=== PATIENT | male | born 1965 | race African-American/Black ===

== ENCOUNTER 2016-05-23 14:49 | Inpatient (IN) | payer OTHER ==
--- NOTE | 2016-05-23 15:12 | ED PDOC ---
HPI: SOB/CHF/COPD Time Seen by Provider: 05/23/16 15:02 Chief Complaint (Nursing): Shortness Of Breath Chief Complaint (Provider): Dyspnea History Per: Patient History/Exam Limitations: no limitations Onset/Duration Of Symptoms: Days (3 weeks) Current Symptoms Are (Timing): Still Present Additional Complaint(s): Dyspnea on exertion. Palpitations off and on and chest pain 1-2 sec occasionally. No numbness, tingles, headaches, dizziness. Has weakness all over. No calf pain. No abd pain. No back pain. Seen by Dr. Chao today and sent to the ER for new onset a-flutter and admit. Past Medical History Reviewed: Nursing Documentation, Vital Signs Vital Signs: Last Vital Signs Temp 97.9 F 05/23/16 14:51 Pulse 86 05/23/16 14:51 Resp 20 05/23/16 14:51 BP 127/74 05/23/16 14:51 Pulse Ox 98 05/23/16 15:22 - Medical History Other PMH: a flutter, high chol - Surgical History Other surgeries: heart valve surg - Family History Family History: States: Unknown Family Hx - Living Arrangements Living Arrangements: With Family - Social History Current smoker - smoking cessation education provided: No Alcohol: None Drugs: Denies - Immunization History Hx Tetanus Toxoid Vaccination: No Hx Influenza Vaccination: No Hx Pneumococcal Vaccination: No - Home Medications Home Medications: Ambulatory Orders Medication Instructions Recorded Atorvastatin [Lipitor] 30 mg PO DAILY 05/23/16 Warfarin [Coumadin] 3 mg PO DAILY 05/23/16 - Allergies Allergies/Adverse Reactions: Allergies Allergy/AdvReac Type Severity Reaction Status Date / Time No Known Allergies Allergy Unverified 04/09/14 10:29 Review of Systems ROS Statement: Except As Marked, All Systems Reviewed And Found Negative Cardiovascular: Positive for: Chest Pain, Palpitations Respiratory: Positive for: Shortness of Breath Neurological: Positive for: Weakness Physical Exam - Reviewed Nursing Documentation Reviewed: Yes Vital Signs Reviewed: Yes - Physical Exam Appears: Positive for: Uncomfortable Head Exam: Positive for: ATRAUMATIC, NORMAL INSPECTION, NORMOCEPHALIC Skin: Positive for: Normal Color, Warm, DRY Eye Exam: Positive for: EOMI, Normal appearance, PERRL ENT: Positive for: Normal ENT Inspection Neck: Positive for: Normal, Painless ROM Cardiovascular/Chest: Positive for: Regular Rate, Rhythm, Chest Non Tender. Negative for: Edema Respiratory: Positive for: CNT, Normal Breath Sounds Gastrointestinal/Abdominal: Positive for: Normal Exam, Bowel Sounds, Soft. Negative for: Tenderness Back: Positive for: Normal Inspection. Negative for: L CVA Tenderness, R CVA Tenderness Extremity: Positive for: Normal ROM. Negative for: Tenderness, Pedal Edema Neurologic/Psych: Positive for: Alert, Oriented - Laboratory Results Result Diagrams: 05/23/16 13:50 05/23/16 13:50 Interpretation Of Abn Labs: 2640 probnp - ECG ECG: Positive for: Interpreted By Me, Viewed By Me Interpretation Of Abn EKG: a flutter O2 Sat by Pulse Oximetry: 98 Pulse Ox Interpretation: Normal - Radiology X-Ray: Interpreted by Me, Viewed By Me X-Ray Interpretation: No Acute Disease - Progress ED Course And Treament: 1517: Stable. AAOx3. No pain at this time. HR controlled. Spoke with Dr. Arrieta. Will admit tele. Will give further orders when pt. reaches floor. Spoke with Dr. Chao. Well aware of pt. No anticoagulants to add at this time as pt. is on coumadin. Wants echo. Will consult. 1739: Stable. AAOx3. Will give lasix for elevated probnp. No asa as pt. on coumadin and elevated INR. Disposition - Clinical Impression Clinical Impression: Atrial flutter, CHF exacerbation - Patient ED Disposition Is Patient to be Admitted: Yes Counseled Patient/Family Regarding: Studies Performed, Diagnosis - Disposition Disposition Time: 17:43 Condition: FAIR - Pt Status Changed To: Hospital Disposition Of: Inpatient - Admit Certification Admit to Inpatient:: After my assessment, the patient will require hospitalization for at least two midnights. This is because of the severity of symptoms shown, intensity of services needed, and/or the medical risk in this patient being treated as an outpatient. - POA Present On Arrival: None
[2016-05-23] MEDS ORDERED: Sodium Chloride 0.9% 500 ML IV STA (15:16)
[2016-05-23 15:38] LABS: BASO # 0.1 K/uL (0.0-0.2); BASO % 0.9 % (0.0-2.0); EOS # 0.1 K/uL (0.0-0.7); EOS % 1.4 % (0.0-4.0); HEMATOCRIT 40.5 % (35.0-51.0); LYMPH # 1.3 K/uL (1.0-4.3); LYMPH % 18.4 % (20.0-40.0); MEAN CELL VOLUME 97.1 fl (80.0-94.0); MEAN CORPUSCULAR HEMOGLOBIN 32.7 pg (27.0-31.0); MEAN CORPUSCULAR HGB CONC 33.7 g/dL (33.0-37.0); MEAN PLATELET VOLUME 7.6 fl (7.2-11.7); MONO # 0.5 K/uL (0.0-0.8); MONO % 6.5 % (0.0-10.0); NEUT # 5.2 K/uL (1.8-7.0); NEUT % 72.8 % (50.0-75.0); RED CELL DISTRIBUTION WIDTH 13.6 % (11.5-14.5); WHITE BLOOD COUNT 7.2 K/uL (4.8-10.8)
[2016-05-23 15:49] LABS: ALB/GLOB RATIO 1.2 (1.0-2.1); ALKALINE PHOSPHATASE 72 U/L (38-126); ALT/SGPT 92 U/L (21-72); AST/SGOT 99 U/L (17-59); BILIRUBIN,TOTAL 0.9 mg/dl (0.2-1.3); BLOOD UREA NITROGEN 12 mg/dl (9-20); CALCIUM 8.8 mg/dL (8.4-10.2); CARBON DIOXIDE 26 mmol/L (22-30); CHLORIDE 103 mmol/L (98-107); GFR AFRICAN-AMERICAN > 60; GLUCOSE,RANDOM 119 mg/dL (75-110); POTASSIUM 3.9 MMOL/L (3.6-5.0); SODIUM 138 mmol/l (132-148); TOTAL PROTEIN 7.7 G/DL (6.3-8.2)
[2016-05-23 16:13] LABS: PARTIAL THROMBOPLASTIN TIME 47.2 SECONDS (23.3-32.5)
--- NOTE | 2016-05-23 16:39 | CP.PCM.HP ---
<Rufina Ng - Last Filed: 05/23/16 16:39> History of Present Illness - History of Present Illness History of Present Illness: Pt is a 50 y/o male with history of valve placement sent by his holter scanning technician for new onset flutter. pt initially presented to his holter scanning technician office with complaints of dyspnea on exertion, palpitations off and on and chest pain 1-2 sec occasionally. No numbness, tingles, headaches, dizziness. Has weakness all over. No calf pain. No abd pain. No back pain. Pt seen and examined in ed , laying in bed with stephenen, states he feel weak but is not having chest pain now. denies any nausea, vomiting or loss of appetite Present on Admission - Present on Admission Any Indicators Present on Admission: No Review of Systems - Review of Systems All systems: reviewed and no additional remarkable complaints except Review of Systems: Per HPI Past Patient History - Past Social History Smoking Status: Never Smoked - CARDIAC Hx Hypercholesterolemia: Yes Hx Mitral Valve Prolapse: Yes - PSYCHIATRIC Hx Substance Use: No - SURGICAL HISTORY Other/Comment: mitral valved repair 1992 [facility] - ANESTHESIA Hx Anesthesia: Yes Hx Anesthesia Reactions: No Meds Allergies/Adverse Reactions: Allergies Allergy/AdvReac Type Severity Reaction Status Date / Time No Known Allergies Allergy Unverified 04/09/14 10:29 Physical Exam - Constitutional Appears: Non-toxic, No Acute Distress - Head Exam Head Exam: NORMOCEPHALIC - Eye Exam Eye Exam: Normal appearance, PERRL Pupil Exam: NORMAL ACCOMODATION - ENT Exam ENT Exam: Mucous Membranes Moist - Respiratory Exam Respiratory Exam: Clear to Auscultation Bilateral, NORMAL BREATHING PATTERN. absent: Rhonchi, Wheezes - Cardiovascular Exam Cardiovascular Exam: REGULAR RHYTHM, +S1, +S2 - GI/Abdominal Exam GI & Abdominal Exam: Normal Bowel Sounds, Soft. absent: Tenderness - Extremities Exam Extremities exam: Positive for: normal inspection. Negative for: calf tenderness, joint swelling, pedal edema - Neurological Exam Neurological exam: Alert, CN II-XII Intact, Oriented x3 - Skin Skin Exam: Normal Color Results - Vital Signs Recent Vital Signs: Last Vital Signs Temp 97.9 F 05/23/16 14:51 Pulse 86 05/23/16 14:51 Resp 20 05/23/16 14:51 BP 127/74 05/23/16 14:51 Pulse Ox 98 05/23/16 15:22 - Labs Result Diagrams: 05/23/16 13:50 05/23/16 13:50 Labs: Laboratory Results - last 24 hr 05/23/16 13:50 WBC 7.2 RBC 4.18 L Hgb 13.7 Hct 40.5 MCV 97.1 H MCH 32.7 H MCHC 33.7 RDW 13.6 Plt Count 218 MPV 7.6 Neut % (Auto) 72.8 Lymph % (Auto) 18.4 L [place] % (Auto) 6.5 Eos % (Auto) 1.4 Baso % (Auto) 0.9 Neut # 5.2 Lymph # 1.3 [place] # 0.5 Eos # 0.1 Baso # 0.1 PT 50.9 H* INR 4.89 H APTT 47.2 H Sodium 138 Potassium 3.9 Chloride 103 Carbon Dioxide 26 Anion Gap 12 BUN 12 Creatinine 0.9 Est GFR ( Amer) > 60 Est GFR (Non-Af Amer) > 60 Random Glucose 119 H Calcium 8.8 Total Bilirubin 0.9 AST 99 H ALT 92 H Alkaline Phosphatase 72 Troponin I 0.0340 NT-Pro-B Natriuret Pep 2640 H Total Protein 7.7 Albumin 4.2 Globulin 3.5 Albumin/Globulin Ratio 1.2 Assessment & Plan - Assessment and Plan (Free Text) Assessment: 50 y/o male with history of hyperlipidemia and valve replacement surgery being admitted for new onset A-flutter Plan: New Onset A-flutter HR -controlled (86) Cardiology consulted Echo ordered- follow up Already on Warfarin- continue 2. Hyperlipidemia Home med resumed 3. diet- Heart healthy 4. DVT - already on warfarin <Moises Arrieta L - Last Filed: 05/24/16 18:12> Results - Vital Signs Recent Vital Signs: Last Vital Signs Temp 97.4 F L 05/24/16 16:00 Pulse 88 05/24/16 16:00 Resp 18 05/24/16 16:00 BP 118/75 05/24/16 16:00 Pulse Ox 100 05/24/16 16:00 - Labs Result Diagrams: 05/23/16 13:50 05/23/16 13:50 Labs: Laboratory Results - last 24 hr 05/24/16 11:19 PT 36.8 H* D INR 3.54 H D Assessment & Plan - Assessment and Plan (Free Text) Plan: I was present during evaluation and discussed with DR Berenice porras plans of care follow up with Cardiology.
--- NOTE | 2016-05-23 19:04 | RAD ---
HISTORY: dyspnea COMPARISON: No prior. FINDINGS: LUNGS: No active pulmonary disease. PLEURA: No significant pleural effusion identified, no pneumothorax apparent. CARDIOVASCULAR: Normal heart size. Mitral valvular prosthesis. Question of aortic valvular prosthesis as well. OSSEOUS STRUCTURES: No significant abnormalities. VISUALIZED UPPER ABDOMEN: Normal. OTHER FINDINGS: None. IMPRESSION: No pulmonary infiltrate. Cardiac valvular prostheses.
--- NOTE | 2016-05-24 13:43 | CP.PCM.CON ---
History of Present Illness - History of Present Illness History of Present Illness: I was asked to see patient by Dr. Arrieta. Jeromy is a 50 year oldmale with a PMH rheumatic heart disease s/p AVR/MVR ( mechanical) who presents with dyspnea. For the past 3 weeks patient has had progressive dyspnea on exertion. symptoms occurred after walking one block, and patient developed orthopnea and PND. Patient was noted to be in atrial flutter which was a new finding. Patient was instructed to go the hospital. Patient was admitted for further evaluation. He improved with lasix, and is now in no acute distress. Review of Systems - Constitutional Constitutional: absent: As Per HPI, Anorexia, Chills, Daytime Sleepiness, Excessive Sweating, Fatigue, Fever, Frequent Falls, Headache, Increased Appetite , Lethargy, Malaise, Night Sweats, Snoring, Sleep Apnea, Weight Gain, Weight Loss, Weakness, Other - EENT Eyes: absent: As Per HPI, Blind Spots, Blurred Vision, Change in Vision, Decreased Night Vision, Diplopia, Discharge, Dry Eye, Exophthalmos, Floaters, Irritation, Itchy Eyes, Loss of Peripheral Vision, Pain, Photophobia, Requires Corrective Lenses, Sees Flashes, Spots in Vision, Tunnel Vision, Other Visual Disturbances, Loss of Vision, Other Ears: absent: As Per HPI, Decreased Hearing, Ear Discharge, Ear Pain, Tinnitus, Abnormal Hearing, Disequilibrium, Dizziness, Other Nose/Mouth/Throat: absent: As Per HPI, Epistaxis, Nasal Congestion, Nasal Discharge, Nasal Obstruction, Nasal Trauma, Nose Pain, Post Nasal Drip, Sinus Pain, Sinus Pressure, Bleeding Gums, Change in Voice, Dental Pain, Dry Mouth, Dysphagia, Halitosis, Hoarsness, Lip Swelling, Mouth Lesions, Mouth Pain, Odynophagia, Sore Throat, Throat Swelling, Tongue Swelling, Facial Pain, Neck Pain, Neck Mass, Other - Cardiovascular Cardiovascular: Dyspnea, Dyspnea on Exertion, Rapid Heart Rate - Respiratory Respiratory: Dyspnea - Gastrointestinal Gastrointestinal: absent: As Per HPI, Abdominal Pain, Belching, Bloating, Change in Bowel Habits, Change in Stool Character, Coffee Ground Emesis, Constipation, Cramping, Diarrhea, Dyspepsia, Dysphagia, Early Satiety, Excessive Flatus, Fecal Incontinence, Heartburn, Hematemesis, Hematochezia, Loose Stools, Melena, Nausea, Odynophagia, Temesmus, Vomiting, Other - Genitourinary Genitourinary: absent: As Per HPI, Change in Urinary Stream, Difficulty Urinating, Dysuria, Flank Pain, Hematuria, Pyuria, Nocturia, Urinary Incontinence, Urinary Frequency, Urinary Hesitance, Urinary Urgency, Voiding Freq/Small Amts, Freq UTI, Hx Renal/Bladder Calculi, Hx /Renal Surgery, Bladder Distension, Other - Musculoskeletal Musculoskeletal: absent: As Per HPI, Abnormal Gait, Arthralgias, Atrophy, Back Pain, Deformity, Joint Swelling, Limited Range of Motion, Loss of Height, Muscle Cramps, Muscle Weakness, Myalgias, Neck Pain, Numbness, Radiating Pain into Limb, Stiffness, Tingling, Other - Integumentary Integumentary: absent: As Per HPI, Acne, Alopecia, Bleeding Lesions, Change in Hair, Change in Nails, Change in Pigmentation, Changing Lesions, Dry Skin, Erythema, Furuncle, Hirsutism, Lesions, New Lesions, Non-Healing Lesions, Photosensitivity, Pruritus, Rash, Skin Pain, Skin Ulcer, Sores, Striae, Swelling , Unusual Bruising, Wounds, Jaundice, Other - Neurological Neurological: absent: As Per HPI, Abnormal Gait, Abnormal Hearing, Abnormal Movements, Abnormal Speech, Behavioral Changes, Burning Sensations, Confusion, Convulsions, Disequilibrium, Dizziness, Numbness, Focal Weakness, Frequent Falls , Headaches, Lack of Coordination, Loss of Vision, Memory Loss, Paresthesias, Radicular Pain, Restless Legs, Sensory Deficit, Syncope, Tingling, Tremor, Vertigo, Weakness, Other Visual Disturbances, Other - Psychiatric Psychiatric: absent: As Per HPI, Abnormal Sleep Pattern, Anhedonia, Anxiety, Auditory Hallucinations, Behavioral Changes, Change in Appetite, Change in Libido, Confusion, Depression, Difficulty Concentrating, Hallucinations, Homicidal Ideation, Hopelessness, Irritability, Memory Loss, Mood Swings, Panic Attacks, Paranoia, Suicidal Ideation, Visual Hallucinations, Tactile Hallucinations, Other - Endocrine Endocrine: absent: As Per HPI, Change in Body Appearance, Change in Libido, Cold Intolorance, Deepening of Voice, Excessive Sweating, Fatigue, Flushing, Heat Intolorance, Increase in Ring/Shoe/Hat Size, Palpitations, Polydipsia, Polyphagia, Polyuria, Other - Hematologic/Lymphatic Hematologic: absent: As Per HPI, Easy Bleeding, Easy Bruising, Lymphadenopathy, Other Past Patient History - Past Social History Smoking Status: Never Smoked - CARDIAC Hx Cardiac Disorders: Yes Hx Mitral Valve Prolapse: Yes Other/Comment: mitral valve surgery 1992 - PULMONARY Hx Respiratory Disorders: No - NEUROLOGICAL Hx Neurological Disorder: No - HEENT Hx HEENT Problems: Yes - RENAL Hx Chronic Kidney Disease: No - ENDOCRINE/METABOLIC Hx Endocrine Disorders: No - HEMATOLOGICAL/ONCOLOGICAL Hx Blood Disorders: No - INTEGUMENTARY Hx Dermatological Problems: No - MUSCULOSKELETAL/RHEUMATOLOGICAL Hx Falls: No - GASTROINTESTINAL Hx Gastrointestinal Disorders: No - GENITOURINARY/GYNECOLOGICAL Hx Genitourinary Disorders: No - PSYCHIATRIC Hx Psychophysiologic Disorder: No Hx Substance Use: No - SURGICAL HISTORY Other/Comment: mitral valved repair 1992 [facility] - ANESTHESIA Hx Anesthesia: Yes Hx Anesthesia Reactions: No Meds Home Medications: Home Medication List Medication Instructions Recorded Confirmed Type Furosemide [Lasix] 40 mg PO DAILY #30 tablet 05/24/16 Rx Potassium Chloride [K-Dur 20] 20 meq PO DAILY #30 tab 05/24/16 Rx [email or web address] CD [Cardizem CD] 120 mg PO DAILY 30 Days 05/24/16 Rx Allergies/Adverse Reactions: Allergies Allergy/AdvReac Type Severity Reaction Status Date / Time No Known Allergies Allergy Unverified 04/09/14 10:29 - Medications Medications: Current Medications Atorvastatin Calcium (Lipitor) 30 mg PO DAILY [facility] Last Admin: 05/24/16 11:04 Dose: 30 mg Warfarin Sodium (Coumadin) 3 mg PO QD5 [facility] PRN Reason: Protocol Stop: 05/24/16 17:01 Physical Exam - Constitutional Appears: Non-toxic - Head Exam Head Exam: NORMAL INSPECTION - Eye Exam Eye Exam: Normal appearance - ENT Exam ENT Exam: Mucous Membranes Moist - Neck Exam Neck exam: Positive for: Full Rom - Respiratory Exam Respiratory Exam: NORMAL BREATHING PATTERN - Cardiovascular Exam Cardiovascular Exam: REGULAR RHYTHM Additional comments: mechanical first, second heart sound - GI/Abdominal Exam GI & Abdominal Exam: Normal Bowel Sounds - Rectal Exam Rectal Exam: Deferred - Extremities Exam Extremities exam: Negative for: pedal edema - Back Exam Back exam: NORMAL INSPECTION - Neurological Exam Neurological exam: Alert, Oriented x3 - Psychiatric Exam Psychiatric exam: Normal Affect - Skin Skin Exam: Normal Color Results - Vital Signs Recent Vital Signs: Last Vital Signs Temp 97.1 F L 05/24/16 09:23 Pulse 89 05/24/16 09:23 Resp 20 05/24/16 09:23 BP 117/77 05/24/16 09:23 Pulse Ox 97 05/24/16 09:23 - Labs Result Diagrams: 05/23/16 13:50 05/23/16 13:50 Labs: Laboratory Results - last 24 hr 05/24/16 11:19 PT 36.8 H* D INR 3.54 H D - EKG Data EKG Interpreted by: Myself EKG shows normal: Sinus rhythm Assessment & Plan (1) Atrial flutter Assessment and Plan: patient is antcoagulated and rate controlled. He is clinically stable. He is rate controlled. I recommend discharge with outptient follow up. If recurrent atrial flutter I will schedule cardioversion as an outpatient. Status: Acute (2) CHF exacerbation Assessment and Plan: improved with lasixErwin Kennedy acute diastolc dysfunction. Status: Acute
[2016-05-24 15:06] VITALS: RESP 18
[2016-05-24 16:49] VITALS: BP 118/75; PULSE 88; TEMP 97.4; O2SAT 100
--- NOTE | 2016-05-24 18:13 | CP.PCM.DIS ---
Provider - Provider Date of Admission: 05/23/16 16:14 Attending physician: Moises Arrieta MD Time Spent in preparation of Discharge (in minutes): 45 Hospital Course - Lab Results Lab Results: Most Recent Lab Values WBC 7.2 K/uL (4.8-10.8) 05/23/16 13:50 RBC 4.18 Mil/uL (4.40-5.90) L 05/23/16 13:50 Hgb 13.7 g/dL (12.0-18.0) 05/23/16 13:50 Hct 40.5 % (35.0-51.0) 05/23/16 13:50 MCV 97.1 fl (80.0-94.0) H 05/23/16 13:50 MCH 32.7 pg (27.0-31.0) H 05/23/16 13:50 MCHC 33.7 g/dL (33.0-37.0) 05/23/16 13:50 RDW 13.6 % (11.5-14.5) 05/23/16 13:50 Plt Count 218 K/uL (130-400) 05/23/16 13:50 MPV 7.6 fl (7.2-11.7) 05/23/16 13:50 Neut % (Auto) 72.8 % (50.0-75.0) 05/23/16 13:50 Lymph % (Auto) 18.4 % (20.0-40.0) L 05/23/16 13:50 [place] % (Auto) 6.5 % (0.0-10.0) 05/23/16 13:50 Eos % (Auto) 1.4 % (0.0-4.0) 05/23/16 13:50 Baso % (Auto) 0.9 % (0.0-2.0) 05/23/16 13:50 Neut # 5.2 K/uL (1.8-7.0) 05/23/16 13:50 Lymph # 1.3 K/uL (1.0-4.3) 05/23/16 13:50 [place] # 0.5 K/uL (0.0-0.8) 05/23/16 13:50 Eos # 0.1 K/uL (0.0-0.7) 05/23/16 13:50 Baso # 0.1 K/uL (0.0-0.2) 05/23/16 13:50 PT 36.8 SECONDS (9.6-11.2) H* D 05/24/16 11:19 INR 3.54 (0.92-1.08) H D 05/24/16 11:19 APTT 47.2 SECONDS (23.3-32.5) H 05/23/16 13:50 Sodium 138 mmol/l (132-148) 05/23/16 13:50 Potassium 3.9 MMOL/L (3.6-5.0) 05/23/16 13:50 Chloride 103 mmol/L (98-107) 05/23/16 13:50 Carbon Dioxide 26 mmol/L (22-30) 05/23/16 13:50 Anion Gap 12 (10-20) 05/23/16 13:50 BUN 12 mg/dl (9-20) 05/23/16 13:50 Creatinine 0.9 mg/dL (0.8-1.5) 05/23/16 13:50 Est GFR ( Amer) > 60 05/23/16 13:50 Est GFR (Non-Af Amer) > 60 05/23/16 13:50 Random Glucose 119 mg/dL (75-110) H 05/23/16 13:50 Calcium 8.8 mg/dL (8.4-10.2) 05/23/16 13:50 Total Bilirubin 0.9 mg/dl (0.2-1.3) 05/23/16 13:50 AST 99 U/L (17-59) H 05/23/16 13:50 ALT 92 U/L (21-72) H 05/23/16 13:50 Alkaline Phosphatase 72 U/L (38-126) 05/23/16 13:50 Troponin I 0.0340 ng/mL (0.00-0.120) 05/23/16 13:50 NT-Pro-B Natriuret Pep 2640 pg/ml (0-900) H 05/23/16 13:50 Total Protein 7.7 G/DL (6.3-8.2) 05/23/16 13:50 Albumin 4.2 g/dL (3.5-5.0) 05/23/16 13:50 Globulin 3.5 gm/dL (2.2-3.9) 05/23/16 13:50 Albumin/Globulin Ratio 1.2 (1.0-2.1) 05/23/16 13:50 - Hospital Course Hospital Course: This is a 50 y/o male with hx of mitral valve replacement admitted for increasing body weakness. Sepspite hydration his symptoms worsened hence sought medical attention and at the ER he was noted to be in atrial flutter.hence admitted. He has been on Coumadin and INR was therapeutic. Dr Chao was alled for consult and kept the patient on IV hydration. Cardizem and lasix. His rhythm converted to NSR . He responded very well and was sent home in stable condition and advised to follow up with Dr Chao to discuss further treatment. Discharge Exam - Head Exam Head Exam: ATRAUMATIC, NORMAL INSPECTION, NORMOCEPHALIC - Eye Exam Eye Exam: Normal appearance - Respiratory Exam Respiratory Exam: NORMAL BREATHING PATTERN - Cardiovascular Exam Cardiovascular Exam: Irregular Rhythm - GI/Abdominal Exam GI & Abdominal Exam: Normal Bowel Sounds - Neurological Exam Neurological exam: CN II-XII Intact, Oriented x3 - Psychiatric Exam Psychiatric exam: Normal Mood Discharge Plan - Discharge Medications Prescriptions: diltiaZEM CD [Cardizem CD] 120 mg PO DAILY 30 Days Potassium Chloride [K-Dur 20] 20 meq PO DAILY #30 tab Furosemide [Lasix] 40 mg PO DAILY #30 tablet - Follow Up Plan Condition: STABLE Disposition: HOME/ ROUTINE Instructions: Atrial Flutter (DC) Additional Instructions: advised follow up in 1 week and follow up with Dr chao in 1 to 2 weeks.
--- NOTE | 2016-05-25 07:20 | CARD ---
APPROVED REPORT EXAM: Two-dimensional and M-mode echocardiogram with Doppler and color Doppler. Other Information Quality : GoodRhythm : Atrial Flutter INDICATION Abnormal EKG/Arrhythmia Surgery/Intervention Status/Post Aortic Valve Replacement: Date: 1992 Status/Post Mitral Valve Replacement: Date: 1992 2D DIMENSIONS IVSd2.15 (0.7-1.1cm)LVDd3.09 (3.9-5.9cm) LVOT Diameter1.80 (1.8-2.4cm)PWd1.69 (0.7-1.1cm) IVSs1.94 (0.8-1.2cm)LVDs2.29 (2.5-4.0cm) FS (%) 25.8 %PWs2.30 (0.8-1.2cm) M-Mode DIMENSIONS IVSd1.85 (0.7-1.1cm)LVDd4.62 (4.0-5.6cm) PWd0.94 (0.7-1.1cm)IVSs1.97 cm FS (%) 37 %LVDs2.91 (2.0-3.8cm) PWs1.38 cm Aortic Valve AoV Peak Lhzzmsvr529.0cm/sAoV VTI44.5cmAO Peak GR.33mmHg LVOT Peak Pkyrdyvf68.8cm/sLVOT VTI9.03cmAO Mean GR.18mmHg RAMON (VMAX)0.43om8TVF (VTI)0.34cm2 Mitral Valve E/A ratio0.0 TDI E/Lateral E'0.0E/Medial E'0.0 Pulmonary Valve PV Peak Ayvuyfba54.8cm/s LEFT VENTRICLE The left ventricle is normal size. There is moderate to severe concentric left ventricular hypertrophy. The left ventricular function is normal. The left ventricular ejection fraction is 50% There is normal LV segmental wall motion. Not assessed due to prosthetic mitral valve No left ventricle thrombus noted on this study. There is no ventricular septal defect visualized. There is no left ventricular aneurysm. There is no mass noted in the left ventricle. RIGHT VENTRICLE The right ventricle is normal size. There is normal right ventricular wall thickness. The right ventricular systolic function is normal. ATRIA The left atrium is severely dilated. The right atrium is mildly dilated. The interatrial septum is intact with no evidence for an atrial septal defect. AORTIC VALVE The aortic valve is normal in structure and function. No aortic regurgitation is present. There is no prosthetic aortic valvular stenosis. There is no aortic valvular vegetation. There are no vegetations on this prosthetic aortic valve. There is a mechanical aortic valve prosthesis. The prosthetic aortic valve appears normal. There is a normal prosthetic aortic valve velocity across the valve of 3 m/s. MITRAL VALVE The mitral valve is normal in structure and function. There is no evidence of mitral valve prolapse. There is no prosthetic mitral valve stenosis. Mitral regurgitation is mild to moderate. The true extent of mitral regurgitation could not be determined due to extensive acoustic shadowing from the prosthetic mitral valve There are no vegetationspresent on this prosthetic mitral valve. It appears to function normally with no valve instability. TRICUSPID VALVE The tricuspid valve is normal in structure and function. There is no tricuspid valve regurgitation noted. There is no tricuspid valve prolapse or vegetation. There is no tricuspid valve stenosis. PULMONIC VALVE The pulmonary valve is normal in structure and function. There is no pulmonic valvular regurgitation. There is no pulmonic valvular stenosis. GREAT VESSELS The aortic root is normal in size. The ascending aorta is normal in size. The IVC is normal in size and collapses >50% with inspiration. PERICARDIAL EFFUSION The pericardium appears normal. There is no pleural effusion. <Conclusion> Normal LV Systolic Function Normally Functioning Prosthetic Aortic Valve Normally Functioning Prosthetic Mitral Valve Extensive Acoustic Shadowing of both Aortic and Mitral valve by the transthoracic technique Concentric LVH Left Atrial Enlargement
--- NOTE | 2016-05-26 10:12 | CARD ---
APPROVED REPORT EKG Measurement Heart [id number] VT P96 [id number] <Conclusion> Atrial flutter with variable AV block Incomplete left bundle branch block Left ventricular hypertrophy with repolarization abnormality Abnormal ECG
== END 2016-05-24 17:21 | disposition home or self-care (01) | DRG 544 ==
LOC: H.ER 14:49 → H.ERHOLD 16:14 → H.TEL 18:59
PROVIDERS: ADMIT Family Medicine; ATTEND Family Medicine
DX: I48.92 Unspecified atrial flutter (principal); I50.31 Acute diastolic (congestive) heart failure; E78.00 Pure hypercholesterolemia, unspecified; Z95.2 Presence of prosthetic heart valve; E78.5 Hyperlipidemia, unspecified; Z79.01 Long term (current) use of anticoagulants